=== PATIENT | female | born 1935 | race Caucasian/White ===

== ENCOUNTER 2017-02-19 08:54 | Outpatient (CLI) | payer MEDICARE, OTHER ==
--- NOTE | 2017-02-21 14:30 | Mammography Report ---
DIGITAL SCREENING MAMMOGRAM: 02/19/2017 CLINICAL INDICATION: An 81-year-old with family history of breast cancer, for screening. COMPARISON: Report of previous mammogram dated 03/18/2006. Original films are not available for kelly coley. TECHNIQUE: Routine CC and MLO projections were obtained of the breasts. FINDINGS: The breasts demonstrate scattered fibroglandular densities bilaterally. Coarse and punctat e, typically benign calcifications are present. No suspicious masses, clustered microcalcifications, or regions of architectural distortion are identified. IMPRESSION: BENIGN FINDINGS. RECOMMENDATION: ROUTINE ANNUAL SCREENING UNLESS OTHERWISE CLINICALLY INDICATED. BIRADS CATEGORY 2-BENIGN FINDINGS. STANDARD QUALIFYING STATEMENTS 1. This examination was reviewed with the aid of Computer-Aided Detection (CAD). 2. A negative or benign imaging report should not delay biopsy if clinically suspicious findings are present. Consider surgical consultation if warranted. More than 5% of cancers are not identified by i maging. 3. Dense breasts may obscure an underlying neoplasm. JOB #: [id number] EXT JOB #:[id number]
== END 2017-02-19 08:55 | disposition home or self-care (01) ==
LOC: DI 08:54
PROVIDERS: ATTEND Family Medicine
DX: Z12.31 Encounter for screening mammogram for malignant neoplasm of breast (principal); Z80.3 Family history of malignant neoplasm of breast
CPT/HCPCS: 77067

== ENCOUNTER 2017-02-21 14:38 | Outpatient (CLI) | payer MEDICARE, OTHER ==
--- NOTE | 2017-02-24 08:34 | DEXA Report ---
DEXA SCAN: 02/21/2017 CLINICAL INDICATION: Postmenopausal. TECHNIQUE: Dual energy x-ray absorptiometry (DXA) was performed on a [employer] system. Regions measured are the AP spine, femoral neck, and, if needed, forearm. COMPARISON: None. In accordance with the International Society for Clinical Densitometry (ISCD) guidelines, data from previous exams may be reanalyzed using current recommendations and techniques. This is done to allow a more accurate basis for comparison with the current study. FINDINGS: The data for the lumbar spine is as follows: REGION BMD (g/cm/cm) T-SCORE Z-SCORE L1 0.843 -2.4 -1.0 L2 0.856 -2.9 -1.5 L3 0.929 -2.3 -0.8 L4 0.940 -2.2 -0.8 TOTAL 0.896 -2.4 -1.0 NOTE: All evaluable vertebrae are used for classification. The data for the hip is as follows: REGION BMD (g/cm/cm) T-SCORE Z-SCORE Neck 0.732 -2.2 -0.3 TOTAL 0.774 -1.9 -0.1 NOTE: The femoral neck or total proximal femur, whichever is lowest, is used for classification. IMPRESSION: THE WHO CLASSIFICATION BASED ON THE INTERNATIONAL REFERENCE STANDARD IS OSTEOPENIA. THE FRACTURE RISK IS INCREASED. RECOMMENDATION: Patients with diagnosis of osteoporosis or osteopenia should have regular bone mineral density assessment. For those eligible for Medicare, routine testing is allowed once every 2 years. Testing frequency can be increased for patients who have rapidly progressing disease or for those who are receiving medical therapy to restore bone mass. COMMENT: World Health Organization (WHO) definitions for osteoporosis and osteopenia: NORMAL BMD: T-score at -1.0 or higher, fracture risk is low. OSTEOPENIA BMD: T-score between -1.0 and -2.5, fracture risk is increased. OSTEOPOROSIS BMD: T-score at -2.5 or lower, fracture risk high. National Osteoporosis Foundation recommends: 1. Obtain adequate dietary calcium (at least 1200 mg per day) and vitamin D (400 -800 international units per day). 2. Participate, as appropriate, in regular weightbearing and muscle- strengthening exercise. 3. Avoid tobacco use and reduce alcohol and caffeine intake. 4. For more detailed information see the website at www.NOF.org. MTDD
== END 2017-02-21 14:39 | disposition home or self-care (01) ==
LOC: DI 14:38
PROVIDERS: ATTEND Family Medicine
DX: M85.89 Other specified disorders of bone density and structure, multiple sites (principal)
CPT/HCPCS: 77080

== ENCOUNTER 2018-12-17 09:33 | Outpatient (CLI) | payer MEDICARE, OTHER | END 2018-12-17 09:34 | disposition home or self-care (01) | LOC: LAB.WCP 09:33 | PROVIDERS: ATTEND Family Medicine | DX: L03.115 Cellulitis of right lower limb (principal) ==

== ENCOUNTER 2019-04-13 11:59 | Outpatient (CLI) | payer MEDICARE, OTHER ==
--- NOTE | 2019-04-14 11:28 | XRAY Report ---
Reason: CHRONIC [employer] LAT R CALCANEUS Procedure Date: 04/13/2019 Accession Number: [id number] / [id number] Procedure: XR - Calcaneus RT CPT Code: FULL RESULT: EXAM: RIGHT CALCANEUS RADIOGRAPHY EXAM DATE: 04/13/2019 12:35 PM. CLINICAL HISTORY: CHRONIC ULCER [employer] INSULATOR LAT R CALCANEUS. COMPARISON: None. TECHNIQUE: 2 views. FINDINGS: Bones: No fractures. Focal demineralization with potential loss of the normal cortical margin along the posterior lateral last back to the calcaneus. Joints: Grossly unremarkable Soft Tissues: Mild soft tissue swelling. IMPRESSION: Focal demineralization with possible loss of the cortical margin posterior lateral right calcaneus. Suggest follow-up calcaneal x-rays in 2-3 weeks for reassessment. Alternatively consider MRI to exclude osteomyelitis. RADIA
== END 2019-04-13 12:00 | disposition home or self-care (01) ==
LOC: DI 11:59
PROVIDERS: ATTEND Podiatrist
DX: L97.419 Non-pressure chronic ulcer of right heel and midfoot with unspecified severity (principal)

== ENCOUNTER 2020-12-21 08:00 | Outpatient (CLI) | payer MEDICARE, OTHER ==
[2020-12-21 20:36] LABS: BACTERIAL VAGINOSIS DNA NEGATIVE (NEGATIVE); CANDIDA GLABRATA DNA NEGATIVE (NEGATIVE); CANDIDA GROUP DNA NEGATIVE (NEGATIVE); CANDIDA KRUSEI DNA NEGATIVE (NEGATIVE); TRICHOMONAS VAGINALIS DNA NEGATIVE (NEGATIVE)
[2020-12-21 21:38] LABS: CHLAMYDIA TRACHOMATIS DNA NEGATIVE (NEGATIVE); NEISSERIA GONORRHOEAE DNA NEGATIVE (NEGATIVE); TRICHOMONAS VAGINALIS DNA NEGATIVE (NEGATIVE)
== END 2020-12-21 23:59 | disposition home or self-care (01) ==
LOC: LAB.N 08:00
PROVIDERS: ATTEND Nurse Practitioner
DX: N39.0 Urinary tract infection, site not specified (principal); R20.8 Other disturbances of skin sensation
CPT/HCPCS: 87077; 87086; 87181; 87491; 87591; 87661; 87801

== ENCOUNTER 2021-04-11 10:15 | Outpatient (CLI) | payer MEDICARE, OTHER ==
[2021-04-11 21:44] LABS: OCCULT BLOOD,URINE NEGATIVE (NEGATIVE)
[2021-04-11 21:58] LABS: CLARITY,URINE CLOUDY (CLEAR)
[2021-04-11 21:59] LABS: BILIRUBIN,URINE COLOR INTERFERENCE (NEGATIVE)
[2021-04-11 22:00] LABS: BACTERIA,URINE Moderate /HPF (None Seen); RBC,URINE None Seen /HPF (0-5); SQUAMOUS EPITHELIAL CELL,UR NONE SEEN (<= Few)
[2021-04-11 22:10] LABS: BACTERIAL VAGINOSIS DNA NEGATIVE (NEGATIVE); CANDIDA GLABRATA DNA NEGATIVE (NEGATIVE); CANDIDA GROUP DNA NEGATIVE (NEGATIVE); CANDIDA KRUSEI DNA NEGATIVE (NEGATIVE); TRICHOMONAS VAGINALIS DNA NEGATIVE (NEGATIVE)
[2021-04-11 23:04] LABS: CHLAMYDIA TRACHOMATIS DNA NEGATIVE (NEGATIVE); NEISSERIA GONORRHOEAE DNA NEGATIVE (NEGATIVE); TRICHOMONAS VAGINALIS DNA NEGATIVE (NEGATIVE)
== END 2021-04-11 10:16 ==
LOC: LAB.N 10:15
PROVIDERS: ATTEND Family Medicine
DX: R10.2 Pelvic and perineal pain (principal)
CPT/HCPCS: 81001; 87086; 87491; 87591; 87661; 87801

== ENCOUNTER 2022-02-11 18:37 | Outpatient (CLI) | payer MEDICARE, OTHER ==
--- NOTE | 2022-02-11 19:43 | Ultrasound Report ---
PROCEDURE: Duplex Ext Veins Right INDICATIONS: EDEMA, RIGHT CALF PAIN TECHNIQUE: Real-time imaging, as well as color and pulse Doppler interrogation, were performed of the lower extr emity deep veins from the inguinal ligament to the popliteal fossa. COMPARISON: None. FINDINGS: The deep veins are normally compressible, and free of intraluminal thrombus. Color and pu lse Doppler demonstrate normal phasic intraluminal flow. There is normal augmentation response to di stal compression maneuver. Right Augustin's cyst measuring 2.9 x 2 x 1.1 cm. Fluid collection anterior lateral to the knee joint measuring 3.3 x 0.5 cm. No hyperemia. IMPRESSION: No right lower extremity DVT. Fluid collection anterior lateral to the knee joint measuring 3.3 x 0.5 cm. This could represent sinu sitis. Hematoma could have a similar appearance. Small Augustin's cyst. Reviewed by: Kody Majano MD on 02/11/2022 7:41 PM PDT Approved by: Kody Majano MD on 02/11/2022 7:41 PM PDT Station ID: [id number]
== END 2022-02-11 18:38 | disposition home or self-care (01) ==
LOC: DI 18:37
PROVIDERS: ATTEND Nurse Practitioner Family
DX: M71.21 Synovial cyst of popliteal space [Baker], right knee (principal); M79.661 Pain in right lower leg; R60.0 Localized edema

== ENCOUNTER 2022-09-06 10:50 | Outpatient (CLI) | payer MEDICARE, OTHER | END 2022-09-06 10:51 | disposition E | LOC: EMS 10:50 ==